=== PATIENT | male | born 1990 | race Caucasian/White ===

== ENCOUNTER 2019-03-07 11:16 | Emergency (ER) | payer SELFPAY ==
[~2019-03-07] VITALS: Ht 152.4 cm; Wt 77.3 kg
[~2019-03-07 11:16] MED LIST: AUGMENTIN500 MG OR; BACTRIM DS1 TAB OR; BACTRIM DS1 TAB PO; BENTYL10 MG PO; CEPHALEXIN250 MG/51 OR; CIPROFLOXACN500 MG PO; FLAGYL500 MG PO; LORTAB 10 PO; LORTAB5 PO; NO MEDS
[2019-03-07 13:15] VITALS: BP 116/69
== END 2019-03-07 13:15 | disposition home or self-care (01) | DRG 195 ==
LOC: ED 11:16
DX: J10.1 Influenza due to other identified influenza virus with other respiratory manifestations (principal); F17.200 Nicotine dependence, unspecified, uncomplicated

== ENCOUNTER 2019-06-06 | Emergency (ER) | payer SELFPAY ==
[2019-06-07] MEDS ORDERED: CLARITIN10 M1 PO (00:27)
[2019-06-07] MEDS ORDERED: AMOXICILLIN500 MG PO (00:27)
== END 2019-06-07 00:35 | disposition home or self-care (01) | DRG 153 ==
DX: J02.0 Streptococcal pharyngitis (principal); F17.210 Nicotine dependence, cigarettes, uncomplicated

== ENCOUNTER 2020-03-26 16:47 | Emergency (ER) | payer SELFPAY ==
[~2020-03-26] VITALS: Ht 175.3 cm; Wt 65.0 kg
[~2020-03-26 16:47] MED LIST changes: +AMOXICILLIN500 MG PO; +CLARITIN10 M1 PO
[2020-03-26 18:34] LABS: HEMATOCRIT 48.4 % (39.0-50.0); HEMOGLOBIN 16.1 g/dl (14.0-18.0); IMMATURE GRANULOCYTES 0.7 % (0.0-5.0); MEAN CELL VOLUME 93.1 fL CALC (80.0-100.0); MEAN CORPUSCULAR HGB CONC 33.3 g/dL CAL (32.0-36.0); NEUT# 4.3 thou/uL (1.82-7.42); RED BLOOD COUNT 5.2 mill/uL (4.70-6.10); RED CELL DISTRI WIDTH 11.9 % (11.5-15.5)
[2020-03-26 18:39] LABS: URINE BILIRUBIN - DIPSTICK NEGATIVE (NEGATIVE); URINE BLOOD DIPSTICK NEGATIVE (NEGATIVE); URINE COLOR YELLOW; URINE GLUCOSE - DIPSTICK NEGATIVE (NEGATIVE); URINE KETONE NEGATIVE (NEGATIVE); URINE LEUK ESTERASE NEGATIVE (NEGATIVE); URINE NITRITE - DIPSTICK NEGATIVE (Negative); URINE PH 7.5 (4.5-8.0); URINE PROTEIN - DIPSTICK NEGATIVE (NEG-TRACE); URINE UROBILINOGEN - DIPSTICK 0.2 E.U./dL (0.2)
[2020-03-26 18:41] LABS: ALBUMIN 4.5 g/dL (3.2-5.0); ALKALINE PHOSPHATASE 42 u/l (38-126); ANION GAP 13 (6-22 (CALC)); BILIRUBIN, TOTAL 0.5 mg/dL (0.0-1.4); BUN 7 mg/dL (9-20); BUN/CREATININE RATIO 8 (12-20 (CALC)); CARBON DIOXIDE 25 mmol/l (22-30); CHLORIDE 104 mmol/l (95-108); CREATININE 0.8 mg/dL (0.7-1.3); GFR > 60 ML/MIN (>=60 (CALC)); GFR FOR AFR.AMER. > 60 ML/MIN (>=60 (CALC)); LIPASE 83 u/l (23-300); POTASSIUM 4.5 mmol/l (3.5-5.1); SGOT/AST 23 u/l (17-59); SODIUM 137 mmol/l (137-146); TOTAL PROTEIN 7.7 g/dL (6.3-8.2)
[2020-03-26 19:03] VITALS: BP 120/66
== END 2020-03-26 19:24 | disposition home or self-care (01) | DRG 392 ==
LOC: ED 16:47
DX: K29.70 Gastritis, unspecified, without bleeding (principal); F17.210 Nicotine dependence, cigarettes, uncomplicated; Z20.828 Contact with and (suspected) exposure to other viral communicable diseases; R05 Cough; R09.89 Other specified symptoms and signs involving the circulatory and respiratory systems

== ENCOUNTER 2020-07-21 13:04 | Emergency (ER) | payer SELFPAY ==
[2020-07-21] MEDS ORDERED: AMOXICILLIN875 MG PO (13:43)
[2020-07-21 13:45] VITALS: BP 131/86
== END 2020-07-21 13:45 | disposition home or self-care (01) | DRG 159 ==
LOC: ED 13:04
DX: K00.6 Disturbances in tooth eruption (principal); F17.200 Nicotine dependence, unspecified, uncomplicated

== ENCOUNTER 2020-09-14 01:55 | Emergency (ER) | payer SELFPAY ==
[~2020-09-14] VITALS: Ht 175.3 cm; Wt 77.0 kg
[~2020-09-14 01:55] MED LIST changes: +AMOXICILLIN875 MG PO
[2020-09-14 02:52] LABS: HEMATOCRIT 47.4 % (39.0-50.0); HEMOGLOBIN 16.1 g/dl (14.0-18.0); IMMATURE GRANULOCYTES 0.4 % (0.0-5.0); MEAN CORPUSCULAR HGB 30.9 pG CALC (26.0-32.0); NEUT# 4.46 thou/uL (1.82-7.42); RED BLOOD COUNT 5.21 mill/uL (4.70-6.10); RED CELL DISTRI WIDTH 12.3 % (11.5-15.5)
[2020-09-14 03:09] LABS: ALBUMIN 4.5 g/dL (3.2-5.0); ALKALINE PHOSPHATASE 43 u/l (38-126); AMYLASE 76 u/l (30-110); ANION GAP 14 (6-22 (CALC)); BILIRUBIN, TOTAL 0.5 mg/dL (0.0-1.4); BUN 18 mg/dL (9-20); BUN/CREATININE RATIO 22 (12-20 (CALC)); CARBON DIOXIDE 27 mmol/l (22-30); CHLORIDE 102 mmol/l (95-108); CREATININE 0.8 mg/dL (0.7-1.3); GFR > 60 ML/MIN (>=60 (CALC)); GFR FOR AFR.AMER. > 60 ML/MIN (>=60 (CALC)); LIPASE 89 u/l (23-300); POTASSIUM 4.3 mmol/l (3.5-5.1); SGOT/AST 37 u/l (17-59); SODIUM 138 mmol/l (137-146); TOTAL PROTEIN 7.8 g/dL (6.3-8.2)
[2020-09-14 03:14] LABS: URINE BILIRUBIN - DIPSTICK NEGATIVE (NEGATIVE); URINE BLOOD DIPSTICK NEGATIVE (NEGATIVE); URINE COLOR YELLOW; URINE GLUCOSE - DIPSTICK NEGATIVE (NEGATIVE); URINE KETONE NEGATIVE (NEGATIVE); URINE LEUK ESTERASE NEGATIVE (NEGATIVE); URINE PROTEIN - DIPSTICK NEGATIVE (NEG-TRACE); URINE SPECIFIC GRAVITY >=1.030
[2020-09-14 03:17] LABS: URINE NITRITE - DIPSTICK NEGATIVE (Negative)
[2020-09-14] MEDS ORDERED: PEPCID40 MG PO (03:46)
[2020-09-14 04:03] VITALS: BP 136/98
== END 2020-09-14 04:04 | disposition home or self-care (01) | DRG 392 ==
LOC: ED 01:55
PROVIDERS: Family Medicine
DX: K29.70 Gastritis, unspecified, without bleeding (principal); F17.210 Nicotine dependence, cigarettes, uncomplicated

== ENCOUNTER 2020-12-12 16:11 | Emergency (ER) | payer SELFPAY ==
[~2020-12-12] VITALS: Ht 175.3 cm; Wt 82.0 kg
[~2020-12-12 16:11] MED LIST changes: +PEPCID40 MG PO
[2020-12-12] MEDS ORDERED: ZPAK PO (17:20)
[2020-12-12 17:29] VITALS: BP 126/79
== END 2020-12-12 17:34 | disposition home or self-care (01) | DRG 866 ==
LOC: ED 16:11
DX: B34.9 Viral infection, unspecified (principal); F17.200 Nicotine dependence, unspecified, uncomplicated; Z20.822 Contact with and (suspected) exposure to COVID-19

== ENCOUNTER 2021-03-18 17:50 | Emergency (ER) | payer SELFPAY ==
[~2021-03-18] VITALS: Ht 175.3 cm; Wt 72.7 kg
[~2021-03-18 17:50] MED LIST changes: +ZPAK PO
[2021-03-18 19:28] VITALS: BP 123/71
== END 2021-03-18 19:25 | disposition home or self-care (01) | DRG 866 ==
LOC: ED 17:50
DX: B34.9 Viral infection, unspecified (principal); F17.210 Nicotine dependence, cigarettes, uncomplicated; Z20.822 Contact with and (suspected) exposure to COVID-19

== ENCOUNTER 2021-03-31 12:22 | Emergency (ER) | payer SELFPAY ==
[~2021-03-31] VITALS: Ht 175.3 cm; Wt 84.0 kg
[2021-03-31 12:30] VITALS: BP 129/76
[2021-03-31] MEDS ORDERED: ZOFRAN4 M1 PO ×2 (12:43→13:39)
== END 2021-03-31 13:50 | disposition home or self-care (01) | DRG 392 ==
LOC: ED 12:22
DX: R11.2 Nausea with vomiting, unspecified (principal); F17.210 Nicotine dependence, cigarettes, uncomplicated; Z20.822 Contact with and (suspected) exposure to COVID-19

== ENCOUNTER 2021-04-09 14:34 | Emergency (ER) | payer SELFPAY ==
[~2021-04-09] VITALS: Ht 175.3 cm; Wt 85.0 kg
[~2021-04-09 14:34] MED LIST changes: +ZOFRAN4 M1 PO
[2021-04-09] MEDS ORDERED: no home med (16:26)
[2021-04-09 16:31] VITALS: BP 130/85
== END 2021-04-09 16:31 | disposition home or self-care (01) | DRG 179 ==
LOC: ED 14:34
DX: U07.1 COVID-19 (principal); F17.200 Nicotine dependence, unspecified, uncomplicated

== ENCOUNTER 2021-04-24 20:01 | Emergency (ER) | payer SELFPAY ==
[~2021-04-24] VITALS: Ht 175.3 cm; Wt 72.8 kg
[~2021-04-24 20:01] MED LIST changes: +no home med
[2021-04-24 20:40] LABS: HEMATOCRIT 42.9 % (39.0-50.0); HEMOGLOBIN 14.2 g/dl (14.0-18.0); IMMATURE GRANULOCYTES 1.5 % (0.0-5.0); MEAN CELL VOLUME 93.5 fL CALC (80.0-100.0); MEAN CORPUSCULAR HGB 30.9 pG CALC (26.0-32.0); MEAN CORPUSCULAR HGB CONC 33.1 g/dL CAL (32.0-36.0); NEUT# 9.66 thou/uL (1.82-7.42); RED BLOOD COUNT 4.59 mill/uL (4.70-6.10); RED CELL DISTRI WIDTH 12.3 % (11.5-15.5)
[2021-04-24 20:58] LABS: ALBUMIN 4.3 g/dL (3.2-5.0); ALKALINE PHOSPHATASE 49 u/l (38-126); ANION GAP 12 (6-22 (CALC)); BILIRUBIN, TOTAL 0.5 mg/dL (0.0-1.4); BUN 14 mg/dL (9-20); BUN/CREATININE RATIO 16 (12-20 (CALC)); CARBON DIOXIDE 26 mmol/l (22-30); CHLORIDE 105 mmol/l (95-108); CREATININE 0.9 mg/dL (0.7-1.3); ETHYL ALCOHOL 0 mg/dl (0-30); GFR > 60 ML/MIN (>=60 (CALC)); GFR FOR AFR.AMER. > 60 ML/MIN (>=60 (CALC)); SGOT/AST 39 u/l (17-59); SODIUM 139 mmol/l (137-146); TOTAL PROTEIN 7.7 g/dL (6.3-8.2)
[2021-04-24 21:04] LABS: ACT PARTIAL THROMBO TIME 22.6 SECONDS (20.0-32.5); INTERNATIONAL NORMALIZED RATIO 1.1 RATIO (0.7-1.3)
[2021-04-25] VITALS: BP 111/57
== END 2021-04-25 | disposition short-term general hospital (02) | DRG 999 ==
LOC: ED 20:01
PROVIDERS: Family Medicine
PROC: 0W9B30Z Drainage of Left Pleural Cavity with Drainage Device, Percutaneous Approach (ICD-10-PCS; principal; 2021-04-24)
DX: S27.0XXA Traumatic pneumothorax, initial encounter (principal); S22.32XA Fracture of one rib, left side, initial encounter for closed fracture; S32.029A Unspecified fracture of second lumbar vertebra, initial encounter for closed fracture; S32.019A Unspecified fracture of first lumbar vertebra, initial encounter for closed fracture; S27.321A Contusion of lung, unilateral, initial encounter; S60.511A Abrasion of right hand, initial encounter; S80.212A Abrasion, left knee, initial encounter; F17.200 Nicotine dependence, unspecified, uncomplicated; V58.5XXA Driver of pick-up truck or van injured in noncollision transport accident in traffic accident, initial encounter
CPT/HCPCS: Q9967

== ENCOUNTER 2022-06-26 16:17 | Emergency (ER) | payer SELFPAY | END 2022-06-26 16:47 | disposition home or self-care (01) | DRG 951 | LOC: ED 16:17 → LWOBS 16:47 → ED 16:47 | DX: Z53.21 Procedure and treatment not carried out due to patient leaving prior to being seen by health care provider (principal) ==

== ENCOUNTER 2022-07-29 20:26 | Emergency (ER) | payer SELFPAY ==
[~2022-07-29] VITALS: Ht 175.3 cm; Wt 77.1 kg
[2022-07-29 20:56] VITALS: BP 122/78
[2022-07-29 21:00] VITALS: BP 120/71
[2022-07-29] MEDS ORDERED: CLINDAMYCIN300 M1 PO (22:16)
[2022-07-29 22:28] VITALS: BP 120/71
== END 2022-07-29 22:28 | disposition home or self-care (01) | DRG 153 ==
LOC: ED 20:26
DX: J03.90 Acute tonsillitis, unspecified (principal); F17.210 Nicotine dependence, cigarettes, uncomplicated; Z20.822 Contact with and (suspected) exposure to COVID-19

== ENCOUNTER 2022-09-19 22:23 | Emergency (ER) | payer MEDICAID ==
[~2022-09-19] VITALS: Ht 175.3 cm; Wt 75.0 kg
[~2022-09-19 22:23] MED LIST changes: +CLINDAMYCIN300 M1 PO
[2022-09-19 22:34] VITALS: BP 127/90
[2022-09-20] MEDS ORDERED: AMOXICILLIN500 MG PO (01:49)
[2022-09-20 01:54] VITALS: BP 119/80
== END 2022-09-20 01:56 | disposition home or self-care (01) ==
LOC: ED 22:23
DX: F17.200 Nicotine dependence, unspecified, uncomplicated (principal); S51.812A Laceration without foreign body of left forearm, initial encounter; S41.112A Laceration without foreign body of left upper arm, initial encounter; S21.112A Laceration without foreign body of left front wall of thorax without penetration into thoracic cavity, initial encounter; S21.111A Laceration without foreign body of right front wall of thorax without penetration into thoracic cavity, initial encounter; W01.119A Fall on same level from slipping, tripping and stumbling with subsequent striking against unspecified sharp object, initial encounter